=== PATIENT | female | born 1970 | race Hispanic/Latino ===

== ENCOUNTER 2018-07-01 10:54 | Emergency (ER) | payer OTHER ==
[2018-07-01] MEDS ORDERED: ONDANSETRON 4 MG (ODT) TAB ONE (12:12)
[2018-07-01] MEDS ORDERED: HYDROCODONE/APAP 5/325 MG TAB ONE (12:12)
--- NOTE | 2018-07-01 12:27 | RAD REPORT ---
EXAM DESCRIPTION: RAD - Knee Right 3 View - 07/01/2018 12:12 pm CLINICAL HISTORY: PAIN Twisting injury COMPARISON: No comparisons FINDINGS: Vague lucency is seen in the lateral tibial plateau posteriorly, suspicious for fracture. Small suprapatellar joint effusion is present. No dislocation evident.
--- NOTE | 2018-07-01 12:36 | ER ---
Nurse's Notes [facility] Name: Jennifer Manzanares Age: 47 yrs Sex: Female : 1970 Arrival Date: 07/01/2018 Time: 10:58 Bed 24 Private MD: Sarah Galaviz Diagnosis: Nondisplaced fracture of right tibial tuberosity;Fall on same level, unspecified Presentation: 07/01 11:15 Presenting complaint: Patient states: knee pain. Transition of care: patient was not iw received from another setting of care. Onset of symptoms was July 01, 2018. Risk Assessment: Do you want to hurt yourself or someone else? Patient reports no desire to harm self or others. Initial Sepsis Screen: Does the patient meet any 2 criteria? No. Patient's initial sepsis screen is negative. Does the patient have a suspected source of infection? No. Patient's initial sepsis screen is negative. Care prior to arrival: None. 11:15 Method Of Arrival: Wheelchair iw 11:20 Acuity: JANELLE 4 iw Triage Assessment: 11:33 General: Behavior is calm, cooperative. 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 - Social history:: Smoking status: Patient/guardian denies using tobacco. - Ebola Screening: : Patient negative for fever greater than or equal to 101.5 degrees Fahrenheit, and additional compatible Ebola Virus Disease symptoms Patient denies exposure to infectious person Patient denies travel to an Ebola-affected area in the 21 days before illness onset No symptoms or risks identified at this time. Screenin:35 Abuse screen:. Nutritional screening: No deficits noted. Tuberculosis screening: No ja1 symptoms or risk factors identified. Fall Risk Fall in past 12 months (25 points). Gait- Mental Status- Oriented to own ability (0 pts). Assessment: 11:33 General: Appears in no apparent distress. General: Appears. Pain: Complains of pain in ja1 medial aspect of right knee. Neuro: No deficits noted. Respiratory: No deficits noted. Vital Signs: 11:35 BP 152 / 76; Pulse 88; Resp 17; Pulse Ox 99% 0 lpm ; ja1 ED Course: 10:58 Patient arrived in ED. rg4 10:59 Sarah Galaviz MD is Private Physician. rg4 11:15 [facility]ann[facility] Vaugh[facility]C [facility] snw 11:15 Wolfgang Montelongo MD is Attending Physician. snw 11:32 Al Flores, RN is Primary Nurse. ja1 11:35 Patient has correct armband on for positive identification. Bed in low position. Call ja1 light in reach. Adult w/ patient. 11:35 Arm band placed on. iw 11:35 No provider procedures requiring assistance completed. ja1 11:44 Triage completed. iw 12:13 Knee Right 3 View XRAY In Process Unspecified. EDMS 12:35 Simon Juarez MD is Referral Physician. snw 13:02 Patient did not have IV access during this emergency room visit. iw Administered Medications: 12:07 Drug: Stella 5 mg-325 mg 1 tabs Route: PO; ja1 12:35 Follow up: Response: No adverse reaction iw 12:07 Drug: Zofran 4 mg Route: PO; ja1 12:35 Follow up: Response: No adverse reaction iw Outcome: 12:35 Discharge ordered by . snw 13:06 Discharged to home via wheelchair, with crutches. iw 13:06 Condition: good 13:06 Discharge instructions given to patient, Instructed on discharge instructions, follow up and referral plans. Demonstrated understanding of instructions, follow-up care, medications, Prescriptions given X 1. 13:08 Patient left the ED. iw Signatures: Dispatcher [employer] EDMS Shannan Vaughn FNP-C SAND MIXER OPERATOR-Csnw More Gerber, RN RN iw Swati Mendoza rg4 Al Flores, RN RN ja1
--- NOTE | 2018-07-01 12:36 | EDPHYS ---
Physician Documentation [facility] Name: Jennifer Manzanares Age: 47 yrs Sex: Female : 1970 Arrival Date: 07/01/2018 Time: 10:58 Bed 24 Private MD: Sarah Galaviz ED Physician Wolfgang Montelongo HPI: 07/01 11:47 This 47 yrs old Female presents to ER via Unassigned with complaints of Fall snw Injury, Knee Pain. 11:47 Details of fall: The patient fell from an upright position, while walking. Onset: The snw symptoms/episode began/occurred suddenly, just prior to arrival. Associated injuries: The patient sustained right knee, contusion, painful injury. Severity of symptoms: At their worst the symptoms were moderate, in the emergency department the symptoms are unchanged. The patient has not experienced similar symptoms in the past. It is unknown whether or not the patient has recently seen a physician. pt's shoe gave way and pt twisted right knee and fell to ground, states she has been unable to bear weight since. 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 - Social history:: Smoking status: Patient/guardian denies using tobacco. - Ebola Screening: : Patient negative for fever greater than or equal to 101.5 degrees Fahrenheit, and additional compatible Ebola Virus Disease symptoms Patient denies exposure to infectious person Patient denies travel to an Ebola-affected area in the 21 days before illness onset No symptoms or risks identified at this time. ROS: 11:47 Constitutional: Negative for fever, chills, and weight loss, Eyes: Negative for injury, snw pain, redness, and discharge, ENT: Negative for injury, pain, and discharge, Neck: Negative for injury, pain, and swelling, Cardiovascular: Negative for chest pain, palpitations, and edema, Respiratory: Negative for shortness of breath, cough, wheezing, and pleuritic chest pain, Abdomen/GI: Negative for abdominal pain, nausea, vomiting, diarrhea, and constipation, Back: Negative for injury and pain, : Negative for injury, bleeding, discharge, and swelling, Skin: Negative for injury, rash, and discoloration, Neuro: Negative for headache, weakness, numbness, tingling, and seizure, Psych: Negative for depression, anxiety, suicide ideation, homicidal ideation, and hallucinations. 11:47 MS/extremity: Positive for injury or acute deformity, contusion, pain, swelling, of the right knee. Exam: 11:47 Constitutional: This is a well developed, well nourished patient who is awake, alert, snw and in no acute distress. Head/Face: Normocephalic, atraumatic. Eyes: Pupils equal round and reactive to light, extra-ocular motions intact. Lids and lashes normal. Conjunctiva and sclera are non-icteric and not injected. Cornea within normal limits. Periorbital areas with no swelling, redness, or edema. ENT: Nares patent. No nasal discharge, no septal abnormalities noted. Tympanic membranes are normal and external auditory canals are clear. Oropharynx with no redness, swelling, or masses, exudates, or evidence of obstruction, uvula midline. Mucous membranes moist. Neck: Trachea midline, no thyromegaly or masses palpated, and no cervical lymphadenopathy. Supple, full range of motion without nuchal rigidity, or vertebral point tenderness. No Meningismus. Chest/axilla: Normal chest wall appearance and motion. Nontender with no deformity. No lesions are appreciated. Cardiovascular: Regular rate and rhythm with a normal S1 and S2. No gallops, murmurs, or rubs. Normal PMI, no JVD. No pulse deficits. Respiratory: Lungs have equal breath sounds bilaterally, clear to auscultation and percussion. No rales, rhonchi or wheezes noted. No increased work of breathing, no retractions or nasal flaring. Abdomen/GI: Soft, non-tender, with normal bowel sounds. No distension or tympany. No guarding or rebound. No evidence of tenderness throughout. Back: No spinal tenderness. No costovertebral tenderness. Full range of motion. Skin: Warm, dry with normal turgor. Normal color with no rashes, no lesions, and no evidence of cellulitis. Neuro: Awake and alert, GCS 15, oriented to person, place, time, and situation. Cranial nerves II-XII grossly intact. Motor strength 5/5 in all extremities. Sensory grossly intact. Cerebellar exam normal. Normal gait. Psych: Awake, alert, with orientation to person, place and time. Behavior, mood, and affect are within normal limits. 11:47 Musculoskeletal/extremity: Extremities: grossly normal except: noted in the posterior aspect of right knee and right knee: contusion, swelling, tenderness, ROM: no acute changes, Circulation is intact in all extremities. Sensation intact. Weight bearing: is unable to bear weight. Vital Signs: 11:35 BP 152 / 76; Pulse 88; Resp 17; Pulse Ox 99% 0 lpm ; ja1 MDM: 11:23 Patient medically screened. snw 12:37 Data reviewed: vital signs, nurses notes. Data interpreted: Pulse oximetry: on room air snw is 99 %. Interpretation: normal. Counseling: I had a detailed discussion with the patient and/or guardian regarding: the historical points, exam findings, and any diagnostic results supporting the discharge/admit diagnosis, the presence of at least one elevated blood pressure reading (>120/80) during this emergency department visit, radiology results, the need for outpatient follow up, to return to the emergency department if symptoms worsen or persist or if there are any questions or concerns that arise at home. Special discussion: I have referred the patient to see his PCP for further evaluation of high blood pressure. Based on the history and exam findings, there is no indication for further emergent testing or inpatient evaluation. I discussed with the patient/guardian the need to see the orthopedic surgeon for further evaluation of the symptoms. I discussed with the patient/guardian the need to see the primary care provider for further evaluation of the symptoms. 07/01 11:43 Order name: Knee Right 3 View XRAY; Complete Time: 12:34 snw 07/01 12:34 Order name: Knee Immobilizer; Complete Time: 12:37 snw 07/01 12:34 Order name: Crutches; Complete Time: 12:37 snw Administered Medications: 12:07 Drug: [place] 5 mg-325 mg 1 tabs Route: PO; ja1 12:35 Follow up: Response: No adverse reaction iw 12:07 Drug: Zofran 4 mg Route: PO; ja1 12:35 Follow up: Response: No adverse reaction iw Disposition: 13:56 Co-signature as Attending Physician, Wolfgang Montelongo MD. rn Disposition: 07/01/18 12:35 Discharged to Home. Impression: Nondisplaced fracture of right tibial tuberosity, Fall on same level, unspecified. - Condition is Stable. - Discharge Instructions: Crutch Use, Fall Prevention in the Home, Knee Immobilizer, RICE for Routine Care of Injuries, Nondisplaced Tibial Plateau Fracture. - Prescriptions for Tylenol- Codeine #3 300-30 mg Oral Tablet - take 2 tablets by ORAL route every 6 hours As needed; 15 tablet. - Work release form, Medication Reconciliation Form, Thank You Letter, Antibiotic Education, Prescription Opioid Use form. - Follow up: Simon Juarez MD; When: 2 - 3 days; Reason: Recheck today's complaints, Continuance of care. Follow up: Emergency Department; When: As needed; Reason: Worsening of condition. Signatures: Dispatcher [employer] EDMS Shannan Vaughn, JESSICA-C DREDGING INSPECTOR-Csnw More Gerber, RN Wolfgang Zhong MD MD rn Aguilar, Jose, RN RN ja1 Corrections: (The following items were deleted from the chart) 12:29 12:18 URINE DIPSTICK--ANCILLARY+U.LAB.BRZ ordered. [facility] EDMS 12:29 12:24 URINE DIPSTICK--ANCILLARY+U.LAB.BRZ reviewed. [facility] EDMS 12:36 12:35 07/01/2018 12:35 Discharged to Home. Impression: Nondisplaced fracture of right snw tibial tuberosity. Condition is Stable. Forms are Medication Reconciliation Form, Thank You Letter, Antibiotic Education, Prescription Opioid Use. Follow up: Simon Juarez; When: 2 - 3 days; Reason: Recheck today's complaints, Continuance of care. Follow up: Emergency Department; When: As needed; Reason: Worsening of condition. snw 13:08 12:36 07/01/2018 12:35 Discharged to Home. Impression: Nondisplaced fracture of right iw tibial tuberosity; Fall on same level, unspecified. Condition is Stable. Forms are Medication Reconciliation Form, Thank You Letter, Antibiotic Education, Prescription Opioid Use. Follow up: Simon Juarez; When: 2 - 3 days; Reason: Recheck today's complaints, Continuance of care. Follow up: Emergency Department; When: As needed; Reason: Worsening of condition. snw
== END 2018-07-01 13:08 | disposition home or self-care (01) ==
LOC: ER 10:54
DX: S82.154A Nondisplaced fracture of right tibial tuberosity, initial encounter for closed fracture (principal); W18.30XA Fall on same level, unspecified, initial encounter; Y93.9 Activity, unspecified; Y92.9 Unspecified place or not applicable
CPT/HCPCS: 99283